=== PATIENT | male | born 1960 | race Caucasian/White ===

== ENCOUNTER 2021-05-27 06:01 | Observation (INO) | payer BC ==
[2021-05-22 12:38] LABS: Hematocrit 48.5 % (39.6-49.0); Lymphocytes % 41.4 % (15.3-44.8); MPV 6.8 fL (7.6-11.3); RBC Red Blood Cell Count 5.37 M/uL (4.33-5.43)
[2021-05-22 12:59] LABS: Protime INR 0.97
[2021-05-27] MEDS ORDERED: LIDOCAINE 1% MPF 5 ML VIAL ONE (06:19)
[2021-05-27] MEDS ORDERED: FENTANYL CITR 100 MCG/2 ML ONE ×3 (06:19→11:34)
[2021-05-27] MEDS ORDERED: MIDAZOLAM HCL 2 MG/2 ML INJ ONE ×2 (06:19→06:39)
[2021-05-27] MEDS ORDERED: dexAMETHasone 4 MG/ML VIAL ONE (06:19)
[2021-05-27] MEDS: Ringers Lactate 1,000 ML IV ONE ×2 (06:20→07:28)
[2021-05-27] MEDS ORDERED: ROPLVACAINE HCL 40 ML ONE (06:20)
[2021-05-27] MEDS ORDERED: CEFAZOLIN/SWI 2gm 2 GM/20 ML SYR ONE (06:25)
[2021-05-27] MEDS ORDERED: ROCURONIUM 50 MG/5 ML VIAL IV ONE (07:21)
[2021-05-27] MEDS ORDERED: LIDOCAINE 2% MPF 5 ML VIAL ONE (07:21)
[2021-05-27] MEDS ORDERED: propofoL 200 MG/20 ML VIAL IV ONE (07:21)
[2021-05-27] MEDS ORDERED: EPHEDRINE SULF 50 MG/ML VIAL ONE ×3 (08:04→12:27)
[2021-05-27] MEDS ORDERED: Ringers Lactate 1,000 ML IV ONE ×3 (08:29→13:13)
[2021-05-27] MEDS ORDERED: ALBUMIN HUM 5% 250 ML IV ONE (10:44)
[2021-05-27] MEDS ORDERED: Phenylephrine HCl 10 MG/ML 1 ML VIAL ONE (10:57)
[2021-05-27] MEDS ORDERED: CEFAZOLIN SODIUM 1 GM/VIAL ONE (12:10)
[2021-05-27] MEDS ORDERED: KETOROLAC 30 MG/ML INJ ONE (12:16)
--- NOTE | 2021-05-27 12:47 | P.BOP ---
Preoperative diagnosis: left shoulder rotator cuff arthropathy Postoperative diagnosis: same Primary procedure: left reverse shoulder arthroplasty Aesthetics Instructor: NONE,NONE Estimated blood loss: 50 cc Specimen: left shoulder bone remnants Findings: see dictation Anesthesia: General Complications: None Implants: Sterile Proc Tech mini baseplate w med aug 36 glenosphere 13 stm 40+3 tray 36 std bearin Fluids & blood products: per anesthesia Transferred to: Recovery Room Condition: Good
[2021-05-27] MEDS ORDERED: DOCUSATE NA 100 MG CAP PO PRN (12:48)
[2021-05-27] MEDS ORDERED: ONDANSETRON 4 MG/2 ML VIAL ONE ×2 (13:07→13:36)
[2021-05-27] MEDS: ONDANSETRON 4 MG/2 ML VIAL IV PRN ×2 (13:11→13:36)
[2021-05-27 13:23] LABS: Hematocrit 37.1 % (39.6-49.0)
[2021-05-27] MEDS ORDERED: PROMETHAZINE INJ 25 MG/ML AMP ONE (13:23)
[2021-05-27] MEDS ORDERED: dexAMETHasone 10 MG/ML VIAL ONE (13:35)
[2021-05-27] MEDS ORDERED: METOCLOPRAMIDE 10 MG/2mL INJ ONE (13:35)
--- NOTE | 2021-05-27 13:35 | RAD REPORT ---
EXAM DESCRIPTION: RAD - Shoulder Left 2 View - 05/27/2021 1:14 pm CLINICAL HISTORY: postop COMPARISON: No comparisons FINDINGS/IMPRESSION: No acute fracture. Status post left shoulder arthroplasty. No evidence of imme diate hardware complications.
[2021-05-27 14:17] VITALS: O2SAT 96
--- OUTSIDE RECORDS SUMMARY | 2021-05-27 14:33 | XMS REPORT | Continuity of Care Document ---
:1960 Author Organization [facility] t Address [address] [place] [address] Care Team Providers Name Role Phone Olena Ramesh Primary Care Physician RENARD Attending Clinician Unavailable Olena Ramesh Attending Clinician Doctor Unassigned, Name Attending Clinician Unavailable Therapy, Covid Infusion Attending Clinician Unavailable Carmelo COREA, H Attending Clinician Eleanor TRAN Attending Clinician Unavailable Edgardo Marcus DO Attending Clinician Fabian RAYMOND Attending Clinician Unavailable Mandi COREA, L Attending Clinician Payers Payer Name Policy Type Policy Number Effective Date Expiration Date Lorenza fu [id number] PPO [id number] 2017 00:00:00 Problems Condition Condition Condition Status Onset Resolution Last Treating Co mments Source Name Details Category Date Date Treatment Clinician Date correction correction Disease Active 0 Uni vers (current) (current) 1-30 ity of use of use of 00:00: [place] non-steroi non-steroi 00 Me dical yi yi Branch anti-infla anti-infla mmatories mmatories (nsaid) (nsaid) ALT (SGPT) ALT (SGPT) Disease Active 0 U nivers level level 8-01 ity of raised: raised: 00:00: [place] 62(12/2017) 62(12/2017) 00 Ak dical Branch Immunizati Immunizati Disease Active 2016-05 U nivers on on 06-14 [place]y of counseling counseling 00:00[place] 00 [place] Essential Essential Disease Active 2016-05 Uni vers hypertensi hypertensi 06-14 it y of on on 00:00: [place] 00 Medical Branch Thumb Thumb Disease Active 2016-05 Univers pain, pain, 06-14 ity of unspecifie unspecifie 00:00[place] d d 00 Medical laterality laterality Br anch 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 07-13 [place] of involving involving 00:[place] multiple multiple 00 Medica l sites with sites with Br anch positive positive rheumatoid rheumatoid factor factor Therapeuti Therapeuti Disease Active U nivers c drug c drug 07-13 [place]y of monitoring monitoring 00:00[place] 00 [place] At risk At risk Disease Active Univers for bone for bone 07-13 ity of density density 00:00: [place] loss loss Medical Branch Allergies, Adverse Reactions, Alerts Allergy Allergy Status Severity Reaction(s) Onset Inactive Treating Comm ents Source Name Type Date Date Clinician CODEINE DRUG Active High ITCHING Univers INGREDI 07-13 ity of 00:00: [place] 00 Medical Branch Codeine Propensi Active Itching Univer s ty to 07-13 ity of adverse 00:00: [place] reaction Medical s Branch Social History Social Habit Start Date Stop Date Quantity Comments Source History SDOH University o f Alcohol Frequency [place] M edical Branch History SDOH University o f Alcohol Std [place] Medical Drinks Branch History [facility] University o f Alcohol Binge [place] Medic al Branch Exposure to Not sure University of SARS-CoV-2 [facility] (event) Branch Alcohol intake 2020-07-10 2020-07-10 Current drinker Unive rsity of 00:00:00 00:00:00 of alcohol [place] Medical (finding) Branch Tobacco use and 2016-07-13 2016-07-13 Never used Universit y of exposure 00:00:00 00:00:00 [facility] [place] Alcohol Comment 2016-07-13 2016-07-13 12 beers only on Uni versity of 00:00:00 00:00:00 weekends [facility] [place] Sex Ass[birth year] At [birth year] Universit y of 00:00:00 00:00:00 [facility] [place] Smoking Status Start Date Stop Date Source Former smoker 2016-07-13 00:00:00 2016-07-13 00:00:00 [facility] Medications Ordered Filled Start Stop Current Ordering Indication Dosage Frequency Signature Comments Components Source Medication Medication Date Date Medication? Clinician (SIG) Name Name casirivimab 202- No [id number] 1200mg 1,200 mg, Univers -imdevimab 01-27 Subcutaneo it y of (REGEN-COV 19:30: 17:52 us, ONCE, [place] (EUA[place] 00 :00 1 dose, On Medical injection e Branch 1,200 mg 01/27/21 at 1430, Routine methylPREDN 2020-0 Yes [id number] 84mg Take 21 Univers ISolone 2-25 tablets by ity of (MEDROL, 00:00: mouth [place] NATHALIE,) 4 mg 00 SEE-INSTRU Med ical tablets CTIONS. Branch follow package directions diclofenac 2020-0 Yes [id number] 75mg Take 1 U nivers 75 mg EC 2-25 tablet by ity of tablet 00:00: mouth 2 [place] ([facility]) Medical times [place] daily with meals. methylPREDN 2020-0 Yes [id number] 84mg Take 21 Univers ISolone 2-25 tablets by ity of (MEDROL, 00:00: mouth [place] NATHALIE,) 4 mg 00 SEE-INSTRU Med ical tablets CTIONS. Branch follow package directions diclofenac 2020-0 Yes [id number] 75mg Take 1 U nivers 75 mg EC 2-25 tablet by ity of tablet 00:00: mouth 2 [place] (two) Medical times [place] daily with meals. methylPREDN 2020-0 Yes [id number] 84mg Take 21 Univers ISolone 2-25 tablets by ity of (MEDROL, 00:00: mouth [place] NATHALIE,) 4 mg 00 SEE-INSTRU Med ical tablets CTIONS. Branch follow package directions diclofenac 2020-0 Yes [id number] 75mg Take 1 U nivers 75 mg EC 2-25 tablet by ity of tablet 00:00: mouth 2 [place] (two) Medical times [place] daily with meals. methylPREDN 2021-0 Yes [id number] 84mg Take 21 Univers ISolone 2-25 tablets by ity of (MEDROL, 00:00: mouth [place] NATHALIE,) 4 mg 00 SEE-INSTRU Med ical tablets CTIONS. Branch follow package directions diclofenac 2020-0 Yes [id number] 75mg Take 1 U nivers 75 mg EC 2-25 tablet by ity of tablet 00:00: mouth (two) Medical times Branch daily with meals. methylPREDN 2021-0 Yes [id number] 84mg Take 21 Univers ISolone 2-25 tablets by ity of (MEDROL, 00:00: mouth [place] NATHALIE,) 4 mg 00 SEE-INSTRU Med ical tablets CTIONS. Branch follow package directions diclofenac 2020-0 Yes [id number] 75mg Take 1 U nivers 75 mg EC 2-25 tablet by ity of tablet 00:00: mouth (two) Medical times Branch daily with meals. methylPREDN 1-0 Yes [id number] 84mg Take 21 Univers ISolone 2-25 tablets by ity of (MEDROL, 00:00: mouth [place] NATHALIE,) 4 mg 00 SEE-INSTRU Med ical tablets CTIONS. Branch follow package directions diclofenac 2020-0 Yes [id number] 75mg Take 1 U nivers 75 mg EC 2-25 tablet by ity of tablet 00:00: mouth (two) Medical times Branch daily with meals. methylPREDN 1-0 Yes [id number] 84mg Take 21 Univers ISolone 2-25 tablets by ity of (MEDROL, 00:00: mouth [place] NATHALIE,) 4 mg 00 SEE-INSTRU Med ical tablets CTIONS. Branch follow package directions diclofenac 2020-0 Yes [id number] 75mg Take 1 U nivers 75 mg EC 2-25 tablet by ity of tablet 00:00: mouth (two) Medical times Branch daily with meals. methylPREDN 2021-0 Yes [id number] 84mg Take 21 Univers ISolone 2-25 tablets by ity of (MEDROL, 00:00: mouth [place] NATHALIE,) 4 mg 00 SEE-INSTRU Med ical tablets CTIONS. Branch follow package directions diclofenac 2021-0 Yes [id number] 75mg Take 1 U nivers 75 mg EC 2-25 tablet by ity of tablet 00:00: mouth 2 [place] 00 (two) Medical times Branch daily with meals. lisinopril- 2020-0 Yes Take by [facility] hydrochloro 2-12 mouth. ity of thiazide 14:12: [place] 20-12.5 mg 36 Medical per tablet Branch lisinopril- 2020-0 Yes Take by [facility] hydrochloro 2-12 mouth. ity of thiazide 14:12: [place] 20-12.5 mg 36 Medical per tablet Branch lisinopril- 2020-0 Yes Take by [facility] hydrochloro 2-12 mouth. ity of thiazide 14:12: [place] 20-12.5 mg 36 Medical per tablet Branch lisinopril- 2020-0 Yes Take by [facility] hydrochloro 2-12 mouth. ity of thiazide 14:12: [place] 20-12.5 mg 36 Medical per tablet Branch lisinopril- 2020-0 Yes Take by [facility] hydrochloro 2-12 mouth. ity of thiazide 14:12: [place] 20-12.5 mg 36 Medical per tablet Branch lisinopril- 2020-0 Yes Take by [facility] hydrochloro 2-12 mouth. ity of thiazide 14:12: [place] 20-12.5 mg 36 Medical per tablet Branch lisinopril- 2020-0 Yes Take by [facility] hydrochloro 2-12 mouth. ity of thiazide 08:12: [place] 20-12.5 mg 36 Medical per tablet Branch lisinopril- 2020-0 Yes Take by [facility] hydrochloro 2-12 mouth. ity of thiazide 08:12: [place] 20-12.5 mg 36 Medical per tablet Branch lisinopril- 2020-0 Yes Take by [facility] hydrochloro 2-12 mouth. ity of thiazide 08:12: [place] 20-12.5 mg 36 Medical per tablet Branch lisinopril- 2020-0 Yes Take by [facility] hydrochloro 2-12 mouth. ity of thiazide 08:12: [place] 20-12.5 mg 36 Medical per tablet Branch lisinopril- 2020-0 Yes Take by [facility] hydrochloro 2-12 mouth. ity of thiazide 08:12: [place] 20-12.5 mg 36 Medical per tablet Branch latanoprost 2020-0 Yes 1[drp] Place 1 U nivers 0.005 % 1-06 Drop in ity of ophthalmic 00:00: [place] eyes [place] drops 00 at Medical bedtime. Branch latanoprost 0 Yes 1[drp] Place 1 U nivers 0.005 % 1-06 Drop in ity of ophthalmic 00:00: both eyes [place] drops 00 at Medical bedtime. Branch latanoprost 0 Yes 1[drp] Place 1 U nivers 0.005 % 1-06 Drop in ity of ophthalmic 00:00: both eyes [place] drops 00 at Medical bedtime. Branch latanoprost 0 Yes 1[drp] Place 1 U nivers 0.005 % 1-06 Drop in ity of ophthalmic 00:00: both eyes [place] drops 00 at Medical bedtime. Branch latanoprost Yes 1[drp] Place 1 U nivers 0.005 % 1-06 Drop in ity of ophthalmic 00:00: both eyes [place] drops 00 at Medical bedtime. Branch latanoprost 0 Yes 1[drp] Place 1 U nivers 0.005 % 1-06 Drop in ity of ophthalmic 00:00: both eyes [place] drops 00 at Medical bedtime. Branch latanoprost 0 Yes 1[drp] Place 1 U nivers 0.005 % 1-06 Drop in ity of ophthalmic 00:00: both eyes [place] drops 00 at Medical bedtime. Branch latanoprost Yes 1[drp] Place 1 U nivers 0.005 % 1-06 Drop in ity of ophthalmic 00:00: both eyes [place] drops 00 at Medical bedtime. Branch latanoprost 0 Yes 1[drp] Place 1 U nivers 0.005 % 1-06 Drop in ity of ophthalmic 00:00: both eyes [place] drops 00 at Medical bedtime. Branch latanoprost 0 Yes 1[drp] Place 1 U nivers 0.005 % 1-06 Drop in ity of ophthalmic 00:00: both eyes [place] drops 00 at Medical bedtime. Branch latanoprost 2020-0 Yes 1[drp] Place 1 U nivers 0.005 % 1-06 Drop in ity of ophthalmic 00:00: [place] eyes [place] drops 00 at Medical bedtime. Branch ENBREL 50 2018-0 Yes INJECT ONE [facility] mg/mL (0.98 4-15 SYRINGE ity o f mL) 00:00: UNDER THE [place] injection 00 SKIN Medical WEEKLY. Branch ENBREL 50 2018-0 Yes INJECT ONE [facility] mg/mL (0.98 4-15 SYRINGE ity o f mL) 00:00: UNDER THE [place] injection 00 SKIN Medical WEEKLY. Branch ENBREL 50 2018-0 Yes INJECT ONE [facility] mg/mL (0.98 4-15 S[place]ING[place] ity o f mL) 00:00: UNDER THE [place] injection 00 SKIN Medical WEEKLY. Branch ENBREL 50 2018-0 Yes INJECT ONE [facility] mg/mL (0.98 4-15 S[place]ING[place] ity o f mL) 00:00: UNDER THE [place] injection 00 SKIN Medical WEEKLY. Branch ENBREL 50 2018-0 Yes INJECT ONE [facility] mg/mL (0.98 4-15 SYRINGE ity o f mL) 00:00: UNDER THE [place] injection 00 SKIN Medical WEEKLY. Branch ENBREL 50 0 Yes INJECT ONE [facility] mg/mL (0.98 4-15 SYRINGE ity o f mL) 00:00: UNDER THE [place] injection 00 SKIN Medical WEEKLY. Branch ENBREL 50 2018-0 Yes INJECT ONE [facility] mg/mL (0.98 4-15 SYRINGE ity o f mL) 00:00: UNDER THE [place] injection 00 SKIN Medical WEEKLY. Branch ENBREL 50 2018-0 Yes INJECT ONE [facility] mg/mL (0.98 4-15 SYRINGE ity o f mL) 00:00: UNDER THE [place] injection 00 SKIN Medical WEEKLY. Branch ENBREL 50 2018-0 Yes INJECT ONE [facility] mg/mL (0.98 4-15 SYRINGE ity o f mL) 00:00: UNDER THE [place] injection 00 SKIN Medical WEEKLY. Branch ENBREL 50 2018-0 Yes INJECT ONE [facility] mg/mL (0.98 4-15 SYRINGE ity o f mL) 00:00: UNDER THE [place] injection 00 SKIN Medical WEEKLY. Branch ENBREL 50 2018-0 Yes INJECT ONE [facility] mg/mL (0.98 4-15 SYRINGE ity o f mL) 00:00: UNDER THE [place] injection 00 SKIN Medical WEEKLY. Branch ENBREL 50 Yes INJECT ONE [facility] mg/mL (0.98 4-15 SYRINGE ity o f mL) 00:00: UNDER THE [place] injection 00 SKIN Medical WEEKLY. Branch Etanercept Yes [id number] 50mg inject 1 Univers (ENBREL 3-01 mL under ity of SURECLICK) 00:00: the skin [place] 50 mg/mL 00 weekly. Medical (0.98 mL) Branch injection Etanercept Yes [id number] 50mg inject 1 Univers (ENBREL 3-01 mL under ity of SURECLICK) 00:00: the skin [place] 50 mg/mL 00 weekly. Medical (0.98 mL) Branch injection Etanercept Yes [id number] 50mg inject 1 Univers (ENBREL 3-01 mL under ity of SURECLICK) 00:00: the skin [place] 50 mg/mL 00 weekly. Medical (0.98 mL) Branch injection Etanercept Yes [id number] 50mg inject 1 Univers (ENBREL 3-01 mL under ity of SURECLICK) 00:00: the skin [place] 50 mg/mL 00 weekly. Medical (0.98 mL) Branch injection Etanercept Yes [id number] 50mg inject 1 Univers (ENBREL 3-01 mL under ity of SURECLICK) 00:00: the skin [place] 50 mg/mL 00 weekly. Medical (0.98 mL) Branch injection Etanercept Yes [id number] 50mg inject 1 Univers (ENBREL 3-01 mL under ity of SURECLICK) 00:00: the skin [place] 50 mg/mL 00 weekly. Medical (0.98 mL) Branch injection Etanercept Yes [id number] 50mg inject 1 Univers (ENBREL 3-01 mL under ity of SURECLICK) 00:00: the skin [place] 50 mg/mL 00 weekly. Medical (0.98 mL) Branch injection Etanercept Yes [id number] 50mg inject 1 Univers (ENBREL 3-01 mL under ity of SURECLICK) 00:00: the skin [place] 50 mg/mL 00 weekly. Medical (0.98 mL) Branch injection Etanercept Yes [id number] 50mg inject 1 Univers (ENBREL 3-01 mL under ity of SURECLICK) 00:00: the skin [place] 50 mg/mL 00 weekly. Medical (0.98 mL) Branch injection Etanercept Yes [id number] 50mg inject 1 Univers (ENBREL 3-01 mL under ity of SURECLICK) 00:00: the skin [place] 50 mg/mL 00 weekly. Medical (0.98 mL) Branch injection Etanercept Yes [id number] 50mg inject 1 Univers (ENBREL 3-01 mL under ity of SURECLICK) 00:00: the skin [place] 50 mg/mL 00 weekly. Medical (0.98 mL) Branch injection Etanercept Yes [id number] 50mg inject 1 Univers (ENBREL 3-01 mL under ity of SURECLICK) 00:00: the skin [place] 50 mg/mL 00 weekly. Medical (0.98 mL) Branch injection Diclofenac Yes [id number] Apply U nivers Sodium 1 % 1-30 1gram to ity o f gel 00:00: affected 00 area twice Medical daily Branch Diclofenac 2018-0 Yes [id number] Apply U nivers Sodium 1 % 1-30 1gram to ity o f gel 00:00: affected 00 area twice Medical daily Branch Diclofenac 2018-0 Yes [id number] Apply U nivers Sodium 1 % 1-30 1gram to ity o f gel 00:00: affected 00 area twice Medical daily Branch Diclofenac 2018-0 Yes [id number] Apply U nivers Sodium 1 % 1-30 1gram to ity o f gel 00:00: affected 00 area twice Medical daily Branch Diclofenac 2019-0 Yes [id number] Apply U nivers Sodium 1 % 1-30 1gram to ity o f gel 00:00: affected [place] 00 area twice Medical daily Branch Diclofenac 2019-0 Yes [id number] Apply U nivers Sodium 1 % 1-30 1gram to ity o f gel 00:00: affected [place] 00 area twice Medical daily Branch Diclofenac 2019-0 Yes [id number] Apply U nivers Sodium 1 % 1-30 1gram to ity o f gel 00:00: affected [place] 00 area twice Medical daily Branch Diclofenac 2018-0 Yes [id number] Apply U nivers Sodium 1 % 1-30 1gram to ity o f gel 00:00: affected 00 area twice Medical daily Branch Diclofenac 2018-0 Yes [id number] Apply U nivers Sodium 1 % 1-30 1gram to ity o f gel 00:00: affected [place] 00 area twice Medical daily Branch Diclofenac 2018-0 Yes [id number] Apply U nivers Sodium 1 % 1-30 1gram to ity o f gel 00:00: affected [place] 00 area twice Medical daily Branch Diclofenac 2018-0 Yes [id number] Apply U nivers Sodium 1 % 1-30 1gram to ity o f gel 00:00: affected [place] 00 area twice Medical daily Branch Diclofenac 2018-0 Yes [id number] Apply U nivers Sodium 1 % 1-30 1gram to ity o f gel 00:00: affected [place] 00 area twice Medical daily Branch lisinopril- 2016- Yes Take by [facility] hydrochloro 1-30 mouth. ity of thiazide 14:29: [place] 20-12.5 mg 03 Medical per tablet Branch Vital Signs Vital Name Observation Time Observation Value Comments Source Systolic blood 2021-01-27 18:20:00 114 mm[Hg] Univer sity of [facility] Diastolic blood 2021-01-27 18:20:00 75 mm[Hg] Unive rsity of [facility] Heart rate 2021-01-27 18:20:00 71 /min [facility] Body temperature 2021-01-27 18:20:00 36.28 Leona [facility] Respiratory rate 2021-01-27 18:20:00 18 /min [facility] Oxygen saturation in 2021-01-27 18:20:00 99 /min [facility] Arterial blood by [facility] Pulse oximetry Branch Body height 2021-01-27 18:16:00 170.2 cm [facility] Body weight 2021-01-27 18:16:00 81.647 kg [facility] BMI 2021-01-27 18:16:00 28.19 kg/m2 [facility] Systolic blood 2020-07-10 20:14:00 116 mm[Hg] Univer sity of [facility] Diastolic blood 2020-07-10 20:14:00 74 mm[Hg] Unive rsity of [facility] Heart rate 2020-07-10 20:14:00 93 /min [facility] Body height 2020-07-10 20:14:00 170.2 cm Universi ty of [facility] [place] Body weight 2020-07-10 20:14:00 78.019 kg Universi ty of [facility] Branch BMI 2020-07-10 20:14:00 26.94 kg/m2 Universi ty [facility] Branch Systolic blood 2020-06-27 14:14:00 133 mm[Hg] Univer sity of pressure [facility] [place] Diastolic blood 2020-06-27 14:14:00 89 mm[Hg] Unive rsity of pressure [facility] [place] Heart rate 2020-06-27 14:14:00 67 /min Universi ty of [facility] [place] BMI 2020-06-27 14:11:00 26.94 kg/m2 Universi ty [facility] Body height 2020-06-27 14:11:00 170.2 cm Universi ty of [facility] [place] Body weight 2020-06-27 14:11:00 78.019 [address]i [address] [facility] Procedures Procedure Date / Time Performing Clinician Source Performed AUTHORIZATION FOR 2021-03-04 05:01:00 Doctor Unassigned, No Univ ersity [facility] RELEASE OF PHI Name Medical Branch CONSENT/REFUSAL FOR 2021-01-27 05:01:00 [facility] Name Medical Branch REFERRAL- 2020-04-16 06:01:00 Doctor Unassigned, No Univer [facility] REQUEST/RESPONSE Name Medical Branch Encounters Start End Encounter Admission Attending Care Care Encounter Source Date/Time Date/Time Type Type Clinicians Facility Department ID 2021-04-[address] [facility] [id number] [place] 15:48:27 [facility] 2021-05-25 2021-05-25 ambulatory [facility] [id number] [facility] 2021-05-25 2021-05-25 ambulatory [facility] [id number] [facility] 2021-05-25 2021-05-25 ambulatory [facility] [id number] [facility] 2021-05-19 2021-05-19 ambulatory [facility] [id number] [facility] 2021-04-22 2021-04-22 ambulatory [facility] [id number] [facility] 2021-04-22 2021-04-22 ambulatory [facility] [id number] [facility] 2021-04-14 2021-04-14 ambulatory [facility] [id number] [facility] 2021-03-27 2021-03-27 ambulatory [facility] [id number] [facility] 2021-03-26 2021-03-26 ambulatory [facility] [id number] [facility] 2021-03-18 2021-03-18 ambulatory [facility] [id number] [facility] 2021-03-09 2021-03-09 Outpatient [facility] [id number] [facility] 2021-03-04 2021-03-04 Telephone VICTORINA Ramesh [id number] Univers 00:00:00 00:00:00 [facility] [id number] it y of [place] [id number] Te[place] as Abundio?Blea [phone] Ak bharathi trotter [address] [place] [address] Medical Office Building 2021-03-04 2021-03-04 Orders Doctor JAD [id number] Univers 00:00:00 00:00:00 Only Unassigned, VICTOR M [id number] ity of [place] [facility] [id number] Terence as [id number] [facility] 009 Branch 2021-01-27 2021-01-27 Nurse Therapy, Clc Covid Infusion [facility] [id number] Univers 12:43:19 13:43:19 Visit CarmeloHoracio [facility] [id number] ity of [place] 4[place]7.2.686 [place] [id number] [facility] 053 Branch Office Building 2021-01-27 2021-01-27 Outpatient R CARMELO [facility] [id number] Univers 13:30:00 13:30:00 [facility] 2021-01-27 2021-01-27 Outpatient [facility] [id number] Univers 08:30:00 08:30:00 [id number] [facility] [facility] 2021-01-27 2021-01-27 Orders Doctor JAD [id number] Univers 00:00:00 00:00:00 Only Unassigned, VICTOR M [id number] ity [facility] [place] [facility] 4.2.7.2.686 Terence as [phone] [facility] 009 Branch 2020-08-05 2020-08-05 Patient Amrit [facility] [id number] Univers 00:00:00 00:00:00 Outreach [facility] [id number] [facility] 4.2.7.2.[place] [id number] Ak dical [address] [place] [address] 2020-07-10 2020-07-10 Outpatient R MANDI [facility] [id number] Univers 16:15:00 16:15:00 ASHISH [id number] [facility] [facility] 2020-07-10 2020-07-10 Outpatient R MANDI [facility] [id number] Univers 16:15:00 16:15:00 ASHISH [facility] [facility] 2020-07-10 2020-07-10 Office Mandi [facility] [id number] Univers 13:47:37 14:22:41 Visit Ashish [facility] [id number] it y of Surgical 4.2.7.2.686 [place] as Specialti [id number] Ak dical es 198 [facility] 2020-06-27 2020-06-27 Hospital [facility] [id number] Univers 08:19:48 23:59:00 Encounter Ashish Peralta [facility] [id number] ity of Surgical [id number] [place] as Specialti [id number] Ak dical es 809 [facility] 2020-06-27 2020-06-27 Office [facility] [id number] Univers 08:06:00 08:55:33 Visit Ashish Peralta [facility] [id number] it y of Surgical 4.2.7.2.686 Te[place] as Specialti [id number] Ak dical es 198 [facility] 2020-06-27 2020-06-27 [id number] Univers 08:00:00 08:00:00 ASHISH [id number] [facility] [facility] 2020-06-27 2020-06-27 [facility] [id number] Univers 08:00:00 08:00:00 ASHISH [facility] [facility] 2020-04-16 2020-04-16 Orders Doctor JAD [id number] Univers 00:00:00 00:00:00 Only Unassigned, VICTOR M [id number] ity [facility] [place] [facility] 4.2.7.2.686 Terence as [id number] [place] [address] Branch Results This patient has no known results.
[2021-05-27] MEDS ORDERED: MORPHINE 2 MG/ML SYR IV PRN (14:46)
[2021-05-27] MEDS: ACETAMINOPHEN 500 MG TAB PO PRN ×2 (16:05→20:53)
[2021-05-27] MEDS: CYCLOBENZAPRINE 10 MG TAB PO PRN (16:06)
[2021-05-27 17:26] VITALS: BMI 26.9
[2021-05-27] MEDS: CEFAZOLIN 2 GM in NA CHLORIDE 0.9% 100 ML IVPB SCH (17:56)
[2021-05-27] MEDS ORDERED: CEFAZOLIN 2 GM in NA CHLORIDE 0.9% 100 ML IVPB SCH (18:00)
[2021-05-28] MEDS: CYCLOBENZAPRINE 10 MG TAB PO PRN (00:31)
[2021-05-28] MEDS: CEFAZOLIN 2 GM in NA CHLORIDE 0.9% 100 ML IVPB SCH ×2 (00:32→05:40)
[2021-05-28] MEDS: ACETAMINOPHEN 500 MG TAB PO PRN (00:58)
[2021-05-28 06:15] LABS: Hematocrit 30.3 % (39.6-49.0)
[2021-05-28] MEDS ORDERED: MULTIVITAMIN TAB PO SCH (09:00)
[2021-05-28] MEDS ORDERED: GABAPENTIN 100 MG CAP PO SCH (09:00)
[2021-05-28] MEDS ORDERED: lisinopriL 10 MG TAB PO SCH (09:00)
[2021-05-28] MEDS ORDERED: HOME MED 1 EA UNK (Multivitamin [Multivitamin] Tablet) PO SCH (09:00)
[2021-05-28] MEDS ORDERED: ASPIRIN 325 MG TAB PO SCH (09:00)
[2021-05-28 12:34] VITALS: BP 112/66; TEMP 98.4
--- NOTE | 2021-05-28 13:09 | P.PN ---
Subjective Date of Service: 05/28/21 Chief Complaint: s/p left shoulder reverse arthroplasty Subjective: Tolerating diet, Ambulating, Improving pain controlled; tolerating diet; ambulated with PT Physical Examination - Vital Signs Temperature: 98.4 F Blood Pressure: 112/66 Pulse: 89 Respirations: 18 Pulse Ox (%): 96 - Physical Exam General: Alert, In no apparent distress Musculoskeletal: Other (LUE: Dressing clean dry and intact; positive firing of EPL, FPL, intrinsics; sensation grossly intact in the radial/median/ulnar/axillary nerve distributions; 2 + radial pulse) - Studies Laboratory Data (last 24 hrs) 05/28/21 05:50: Hgb 10.2 L, Hct 30.3 L D 05/27/21 16:15: Hgb Cancelled, Hct Cancelled 05/27/21 13:15: Hgb 12.6 L D, Hct 37.1 L D Assessment And Plan - Plan Alden is a 60-year-old male status post left shoulder reverse arthroplasty POD #1 -Patient is doing well at this time -Patient mobilized with physical therapy with pain controlled -We will discharge patient home today and will follow-up in my clinic in 1 week for wound check
[2021-05-31] MEDS ORDERED: ETANERCEPT 25 MG/0.5 ML SQ SCH (09:00)
== END 2021-05-28 14:17 | disposition home or self-care (01) ==
LOC: OR 06:01 → 2ND 12:49
PROVIDERS: ADMIT Orthopaedic Surgery Sports Medicine; ATTEND Orthopaedic Surgery Sports Medicine
PROC: 0RRK00Z Replacement of Left Shoulder Joint with Reverse Ball and Socket Synthetic Substitute, Open Approach (ICD-10-PCS; principal; 2021-05-27 07:30)
DX: M12.812 Other specific arthropathies, not elsewhere classified, left shoulder (principal); M75.102 Unspecified rotator cuff tear or rupture of left shoulder, not specified as traumatic; I10 Essential (primary) hypertension; E78.00 Pure hypercholesterolemia, unspecified; Z88.6 Allergy status to analgesic agent; Z20.822 Contact with and (suspected) exposure to COVID-19; Z82.49 Family history of ischemic heart disease and other diseases of the circulatory system
CPT/HCPCS: 23472; 93005; 85025; 80048; 36415 ×3; 85610; 88305; 88311; 85730; 85018 ×2; 85014 ×2; 73030; 97161; 94010; U0002; U0003; J2704; J1100 ×2; J2765; J2550; J2370; J2250; J3010 ×2; P9045; J2795; J0690 ×3; G0378 ×3; J7120 ×4; J2405 ×2; G0379; 88304